=== PATIENT | male | born 1935 | race Caucasian/White ===

== ENCOUNTER 2016-08-31 12:50 | Emergency (ER) | payer OTHER ==
[~2016-08-31] VITALS: Ht 182.9 cm; Wt 96.6 kg
--- NOTE | ~2016-08-31 | EKG ---
[place] [address] [facility] [place] [address] ELECTROCARDIOGRAM REPORT Name: KE MONTEJO Room #: [facility] [id number] Admission: 08/31/16 Attend Phys: Discharge: 08/31/16 Date of : 39 Report #: [id number] THIS REPORT FOR: //name// [facility] ED Test Date: 2016-08-31 Test Time: 12:52:15 Pat Name: KE MONTEJO Department: Room: 239 Gender: M [employer]: TATI : 1935 Requested By: Daljit Tierney Order Number: [id number] MD: Niraj Figueredo Measurements Intervals [place] Rate: 111 P: 79 KS: 193 QRS: 43 QRSD: 109 T: 243 QT: 323 QTc: 439 Interpretive Statements Sinus tachycardia Atrial premature complex Borderline low voltage, extremity leads Repol abnrm suggests ischemia, lateral leads No previous ECG available for comparison Electronically Signed On 09-02-2016 7:08:58 CDT by Niraj Figueredo [email or web address] <ELECTRONICALLY SIGNED> By: Niraj Figueredo MD, [facility] 09/02/16 [id number] 125 Niraj Figueredo MD, FAC /EPI
[~2016-08-31 12:50] MED LIST: ADULT LOW DOSE81 MG PO; ALTACE10 M1 PO; CARVEDILOL25 MG PO; FISH OIL 1,0001 EAC5 PO; VITAMIN D32000 UNIT PO; VYTORIN 10-401 EACH PO
[2016-08-31 12:53] VITALS: BP 97/68
[2016-08-31 13:36] LABS: ABSOLUTE NEUTROPHILS 9.6 thou/uL (1.4-8.2); BASOPHILS 1.1 % (0.0-2.0); HEMOGLOBIN 13.8 gm/dL (14.0-18.0); LYMPHOCYTES 11.5 % (24.0-44.0); MCH 27.6 pg (26.0-34.0); MCHC 32.1 g/dL (28.0-37.0); MCV 85.9 fL (80.0-100.0); MONOCYTES 7.5 % (1.0-8.0); PLATELET COUNT 218 thou/uL (150-400); POLYS 79.9 % (36.0-66.0); RBC 5.01 mil/uL (4.50-6.00); RDW 18.2 % (10.5-14.5)
[2016-08-31 13:37] LABS: URINE BILIRUBIN NEGATIVE (Negative); URINE BLOOD 3+ (Negative); URINE COLOR YELLOW; URINE GLUCOSE-RANDOM* TRACE (Negative); URINE KETONES NEGATIVE (Negative); URINE LEUKOCYTES-REFLEX NEGATIVE (Negative); URINE PROTEIN (DIPSTICK) 2+ (Negative); URINE SPECIFIC GRAVITY 1.025 (1.003-1.035); URINE UROBILINOGEN 0.2 E.U./dl (0.2-1.0)
[2016-08-31 13:38] LABS: MANUAL DIFF NO
[2016-08-31 13:43] LABS: CALCIUM 9.2 mg/dL (8.5-10.1); CREATININE 2.5 mg/dL (0.7-1.3); POTASSIUM 4.5 mmol/L (3.5-5.1)
[2016-08-31 13:47] LABS: CASTS None Seen /LPF (None Seen); CRYSTALS None Seen /LPF (None Seen); SQUAMOUS 0-3 Few /LPF (0-3); URINE RBC >20 Many /HPF (0-2); URINE WBC-REFLEX 0-5 Rare /HPF (0-5)
[2016-08-31 13:49] LABS: ALBUMIN 3.5 g/dL (3.4-5.0); TOTAL BILIRUBIN 0.7 mg/dL (<0.1-1.0); TOTAL PROTEIN 7.6 g/dL (6.4-8.2)
[2016-08-31 13:50] LABS: APTT 25.7 Seconds (24.5-32.8); PROTIME 11.3 Seconds (9.3-11.4)
[2016-08-31 13:55] LABS: INR 1.1; TROPONIN-I 0.74 ng/mL (<0.04-0.07)
[2016-08-31 14:41] LABS: ABG SAMPLE TYPE ARTERIAL; BE(vivo) -1.6 mmol/L (-2 to +3); HCO3 22.5 mmol/L (22.0-26.0); LACTATE 2.16 mmol/L (0.5-2.0); O2(CT) 20.1 mL/dL (15.0-23.0); O2Hb 98.7 % (92.0-98.0); PCO2 36.2 mmHg (35.0-45.0); PO2 293.4 mmHg (80.0-100.0); pH 7.411 (7.360-7.450); sO2 99.7 % (92.0-98.0); tCO2 23.6 mmol/L (24.0-30.0)
[2016-08-31 14:42] LABS: STICK SITE R.RADIAL; TIDAL VOLUME 600 ml
[2016-08-31 17:40] VITALS: BP 95/66
== END 2016-08-31 18:52 | disposition short-term general hospital (02) ==
LOC: ER 12:50 → ICU 14:01 → ER 14:01 → ICU 14:01 → ER 18:52
PROVIDERS: Emergency Medicine; Family Medicine
DX: R41.82 Altered mental status, unspecified (principal); N17.9 Acute kidney failure, unspecified; R79.89 Other specified abnormal findings of blood chemistry